=== PATIENT | male | born 1995 ===

== ENCOUNTER 2017-01-06 14:07 | Emergency (ER) | payer SELFPAY ==
[2017-01-06 14:26] VITALS: BP 153/80; PULSE 80; RESP 19; TEMP 97.6; O2SAT 99
--- NOTE | 2017-01-06 14:51 | ED PDOC ---
HPI: Allergic Reaction Time Seen by Provider: 01/06/17 14:27 Chief Complaint (Nursing): Abnormal Skin Integrity Chief Complaint (Provider): Poison Lisset History Per: Patient History/Exam Limitations: no limitations Onset/Duration Of Symptoms: Days (x7) Additional Complaint(s): Bakari Salazar, 21 year old male presents to the ED on 01/06/17 for a poison lisset rash spreading to his upper extremities, lower extremities, and his torso. The patient states this occurred 1 week prior to arrival when he was pulling vicki off his house. He has taken Benadryl, Neosporin, and Calamine. The patient also reports itchiness and burning in the areas. Past Medical History Reviewed: Historical Data, Nursing Documentation, Vital Signs Vital Signs: Last Vital Signs Temp 97.6 F 01/06/17 14:23 Pulse 80 01/06/17 14:23 Resp 19 01/06/17 14:23 BP 153/80 H 01/06/17 14:23 Pulse Ox 99 01/06/17 14:23 - Medical History PMH: No Chronic Diseases - Family History Family History: States: Unknown Family Hx - Immunization History Hx Tetanus Toxoid Vaccination: No Hx Influenza Vaccination: No Hx Pneumococcal Vaccination: No - Home Medications Home Medications: Ambulatory Orders Medication Instructions Recorded Doxycycline Hyclate 100 mg PO BID #14 tablet 02/16/16 Methylprednisolone [Medrol Dose 4 mg PO DAILY #21 mg 01/06/17 Pack (21 tabs)] - Allergies Allergies/Adverse Reactions: Allergies Allergy/AdvReac Type Severity Reaction Status Date / Time No Known Allergies Allergy Verified 11/12/15 18:01 Review of Systems ROS Statement: Except As Marked, All Systems Reviewed And Found Negative Skin: Positive for: Rash (poison lisset rash spread to upper/lower extremities and torso ), Other (itchiness/burning in upper/lower extremities and torso ) Physical Exam - Reviewed Nursing Documentation Reviewed: Yes Vital Signs Reviewed: Yes - Physical Exam Appears: Positive for: Non-toxic, No Acute Distress Head Exam: Positive for: ATRAUMATIC, NORMOCEPHALIC Skin: Positive for: Rash (erythematous; scabbed over vesicles to upper/lower extremities and torso ) Neurologic/Psych: Positive for: Alert, Oriented (x3) - ECG O2 Sat by Pulse Oximetry: 99 (RA) Pulse Ox Interpretation: Normal Disposition - Clinical Impression Clinical Impression: Poison lisset dermatitis - Patient ED Disposition Is Patient to be Admitted: No - Disposition Disposition: Routine/Home Disposition Time: 16:07 Condition: STABLE Prescriptions: Methylprednisolone [Medrol Dose Pack (21 tabs)] 4 mg PO DAILY #21 mg Instructions: Poison Lisset (ED), Contact Dermatitis (ED) - POA Present On Arrival: None Medical Decision Making Medical Decision Making: Initial Impression: Poison Lisset Rash Initial Plan: * Methylprednisolone 125 mg IM Once * Reevaluation Scribe Attestation: Documented by Kelsey Long, acting as a scribe for Ama Loyd PA-C. Provider Scribe Attestation: All medical record entries made by the Scribe were at my direction and personally dictated by me. I have reviewed the chart and agree that the record accurately reflects my personal performance of the history, physical exam, medical decision making, and the department course for this patient. I have also personally directed, reviewed, and agree with the discharge instructions and disposition.
== END 2017-01-06 16:30 | disposition home or self-care (01) ==
LOC: H.ER 14:07
DX: L23.7 Allergic contact dermatitis due to plants, except food (principal)
CPT/HCPCS: 96372; 99282; J2930